=== PATIENT | male | born 1985 | race Caucasian/White ===

== ENCOUNTER 2019-06-24 | Emergency (ER) | payer OTHER ==
[2019-06-24] MEDS ORDERED: NAPROXEN500 MG PO (15:21)
== END 2019-06-24 15:30 | disposition home or self-care (01) | DRG 552 ==
DX: S13.9XXA Sprain of joints and ligaments of unspecified parts of neck, initial encounter (principal); V43.54XA Car driver injured in collision with van in traffic accident, initial encounter